=== PATIENT | male | born 1955 | race Caucasian/White ===

== ENCOUNTER → 2017-06-03 | Outpatient (CLI) | payer OTHER | END | disposition home or self-care (01) | LOC: LAB 18:10 | DX: N39.0 Urinary tract infection, site not specified (principal); R30.0 Dysuria | CPT/HCPCS: 87086 ==

== ENCOUNTER 2018-12-22 11:54 | Day surgery (SDC) | payer MEDICARE ==
--- NOTE | 2018-12-22 16:57 | NUR ---
1505: IV 22 GAUGE STARTED TO L WRIST. FLUSHED WITH 10ML NS. TAGADERM CHG DRESSING PLACED. THIS RN NOT ABLE TO ACCESS VAS RECORD ON [employer].
--- NOTE | 2018-12-22 16:58 | NUR ---
1658: IV DC'D WITH CATH INTACT. 2X2 GAUZE AND COBAN OVER SITE, NO BLEEDING NOTED.
[2018-12-22] MEDS ORDERED: Pravastatin Sod80 MG PO (17:05)
[2018-12-22] MEDS ORDERED: TAMSULOSIN HCL0.4 MG PO (17:07)
[2018-12-22] MEDS ORDERED: BETASERON0.3 MG (17:08)
[2018-12-22] MEDS ORDERED: IBUP400 PO (17:09)
[2018-12-22] MEDS ORDERED: CYAN500 PO (17:10)
[2018-12-22] MEDS ORDERED: VITAMIN E PO (17:15)
[2018-12-22] MEDS ORDERED: MAGNESIUM400 MG PO (17:18)
[2018-12-22] MEDS ORDERED: ASCO500 PO ×2 (17:19→17:26)
[2018-12-22] MEDS ORDERED: ZINC15 PO (17:21)
[2018-12-22] MEDS ORDERED: CO Q10100 MG PO (17:26)
[2018-12-22] MEDS ORDERED: Solu-Medrol1000 MG IV (17:28)
== END 2018-12-22 16:58 | disposition home or self-care (01) ==
LOC: ATC 11:54
DX: G35 Multiple sclerosis (principal)
CPT/HCPCS: 96365; J2930

== ENCOUNTER 2018-12-24 00:09 | Day surgery (SDC) | payer MEDICARE ==
[~2018-12-24 00:09] MED LIST: ASCO500 PO; BETASERON0.3 MG; CO Q10100 MG PO; CYAN500 PO; IBUP400 PO; MAGNESIUM400 MG PO; Pravastatin Sod80 MG PO; Solu-Medrol1000 MG IV; TAMSULOSIN HCL0.4 MG PO; VITAMIN E PO; ZINC15 PO
== END 2018-12-24 10:05 | disposition home or self-care (01) ==
LOC: ATC 00:09
DX: G35 Multiple sclerosis (principal); Z79.899 Other long term (current) drug therapy
CPT/HCPCS: 96365; J2930

== ENCOUNTER 2018-12-25 02:22 | Day surgery (SDC) | payer MEDICARE | END 2018-12-25 16:13 | disposition home or self-care (01) | LOC: ATC 02:22 | DX: G35 Multiple sclerosis (principal); Z79.899 Other long term (current) drug therapy | CPT/HCPCS: 96365; J2930 ==

== ENCOUNTER 2018-12-26 08:53 | Day surgery (SDC) | payer MEDICARE | END 2018-12-26 10:32 | disposition home or self-care (01) | LOC: ATC 08:53 | DX: G35 Multiple sclerosis (principal) | CPT/HCPCS: 96365; J2930 ==

== ENCOUNTER 2018-12-27 09:01 | Day surgery (SDC) | payer MEDICARE | END 2018-12-27 11:07 | disposition home or self-care (01) | LOC: ATC 09:01 | DX: G35 Multiple sclerosis (principal) | CPT/HCPCS: 96365; J2930 ==

== ENCOUNTER → 2019-07-07 | Outpatient (CLI) | payer MEDICARE | END | disposition home or self-care (01) | LOC: LAB SRC 10:35 → LAB SHORT 10:35 | DX: N39.0 Urinary tract infection, site not specified (principal) | CPT/HCPCS: 87077; 87086; 87186 ==

== ENCOUNTER 2019-08-04 11:08 | Day surgery (SDC) | payer MEDICARE ==
[~2019-08-04] VITALS: Ht 170.2 cm; Wt 66.0 kg
[~2019-08-04 11:08] MED LIST changes: +ATOR40TA PO; -BETASERON0.3 MG; +BETASERON0.3 MG SC; +MODA200 PO; +PARO10 PO; +Rapaflo8 MG PO
== END 2019-08-04 13:25 | disposition home or self-care (01) ==
LOC: ORSCSDS 11:08
PROVIDERS: Internal Medicine Gastroenterology
PROC: 0DJD8ZZ Inspection of Lower Intestinal Tract, Via Natural or Artificial Opening Endoscopic (ICD-10-PCS; principal; 2019-08-04 12:15)
DX: R10.32 Left lower quadrant pain (principal); K57.30 Diverticulosis of large intestine without perforation or abscess without bleeding; K64.8 Other hemorrhoids; E78.5 Hyperlipidemia, unspecified; F32.9 Major depressive disorder, single episode, unspecified; G35 Multiple sclerosis; Z79.899 Other long term (current) drug therapy
CPT/HCPCS: J2704; J7120

== ENCOUNTER → 2020-05-03 | Outpatient (CLI) | payer MEDICARE | END | disposition home or self-care (01) | LOC: LAB 18:02 → LAB SHORT 18:02 | DX: R10.9 Unspecified abdominal pain (principal) | CPT/HCPCS: 87086 ==

== ENCOUNTER → 2020-07-14 | Outpatient (CLI) | payer MEDICARE | LOC: LAB SHORT 11:50 → LAB 11:50 | DX: R30.0 Dysuria (principal) | CPT/HCPCS: 87086 ==

== ENCOUNTER → 2020-10-27 | Outpatient (CLI) | payer MEDICARE | END | disposition home or self-care (01) | LOC: LAB 18:41 → LAB SHORT 18:41 | DX: R30.0 Dysuria (principal) | CPT/HCPCS: 87086 ==